=== PATIENT | female | born 1965 | race Caucasian/White ===

== ENCOUNTER 2023-05-21 17:48 | Emergency (ER) | payer BC, OTHER ==
[~2023-05-21] VITALS: Ht 167.6 cm; Wt 65.8 kg
[2023-05-21] MEDS ORDERED: PREDNISONE50 MG PO (18:29)
[2023-05-21] MEDS ORDERED: IBUPROFEN200 MG PO (18:29)
[2023-05-21] MEDS ORDERED: ZANAFLEX4 MG PO (18:29)
[2023-05-21] MEDS ORDERED: HYDROCODONE/APAP 5MG-325MG TAB PO ONE (18:30)
[2023-05-21] MEDS ORDERED: ONDANSETRON HCL 4 MG ORAL DISINTEGRATING TAB PO ONE (18:30)
[2023-05-21] MEDS ORDERED: DEXAMETHASONE SOD PHOS INJ 4 MG/ML SDV IM ONE (18:30)
[2023-05-21] MEDS ORDERED: ONDANSETRON HCL 4 MG ORAL DISINTEGRATING TAB ONE (19:16)
[2023-05-21] MEDS ORDERED: HYDROCODONE/APAP 5MG-325MG TAB ONE (19:16)
[2023-05-21] MEDS ORDERED: DEXAMETHASONE SOD PHOS INJ 4 MG/ML SDV ONE (19:16)
[2023-05-21 19:25] VITALS: O2SAT 99
== END 2023-05-21 19:30 | disposition home or self-care (01) ==
LOC: FSED 17:54
DX: M54.50 Low back pain, unspecified (principal); R07.89 Other chest pain; G89.29 Other chronic pain; R94.31 Abnormal electrocardiogram [ECG] [EKG]; F17.210 Nicotine dependence, cigarettes, uncomplicated
CPT/HCPCS: 93005; 99284; J1100; Q0162